=== PATIENT | male | born 1945 | race Caucasian/White ===

== ENCOUNTER 2016-12-23 20:10 | Emergency (ER) | payer OTHER ==
[~2016-12-23 20:10] MED LIST: AMIODARONE HCL INJ 150 MG/3 ML VIAL IV ONE; EPINEPHRINE INJ 1 MG/10 ML DISP.SYRIN ONE; SODIUM BICARBONATE 8.4% INJ 50 MEQ/50 ML DISP.SYRIN ONE; SUCCINYLCHOLINE CHLORIDE INJ 200 MG/10 ML VIAL ONE
[2016-12-23] MEDS ORDERED: PROPOFOL 100 ML IV ONE (20:17)
[2016-12-23] MEDS ORDERED: ASPIRIN 300 MG SUPP, RECTAL PR ONE (20:27)
--- NOTE | 2016-12-23 20:37 | ER Document Report ---
ED Resuscitation - General Stated Complaint: RESPITORY DISTRESS Time Seen by Provider: 12/23/16 20:26 Mode of Arrival: Medic Information source: Emergency Med Personnel Notes: This is a 71-year-old male presents with initial call of respiratory distress but cardiac arrest in route. EMS states that he was alert and conversant on their arrival in significant respiratory distress with room air sats in the 80s. They did start him on CPAP and in route he did experience a cardiac arrest. They gave one epi and performed CPR and patient did have a faint pulse upon arrival to the ER. He was intubated via RSI in the ER. However shortly after arrival he did lose his pulse and CPR was resumed. ACLS protocol was followed. Patient then was noted to be in V. tach and was defibrillated 3. He was given an amiodarone bolus followed by an amiodarone drip. He had return of spontaneous circulation with sinus rhythm. was then available for history. She states that he recently had an OK sometime last month and was treated at [facility]. She requests transfer back to [facility]. She does not think he had chest pain today but says that he did have shortness of breath today EMS reports that they were out there 2 times earlier today but patient had refused transport to the ER both times. TRAVEL OUTSIDE OF THE [place] IN LAST 30 DAYS: No Past Medical History - General Information source: Relative - Social History Smoking Status: Unknown if Ever Smoked Family History: Other - unknown at this time - Past Medical History Cardiac Medical History: Reports: Hx Heart Attack, Hx Hypertension Review of Systems - Review of Systems -: Yes ROS unobtainable due to patient's medical condition Physical Exam - Vital signs Vitals: Resp Pulse Ox 18 22 L 12/23/16 20:11 12/23/16 20:11 - General General appearance: Unresponsive - HEENT Head: Normocephalic Notes: pupils 2mm sluggish - Respiratory Respiratory status: Agonal respirations - Cardiovascular Rhythm: Regular - Abdominal Notes: distended, protuberant - Neurological Neuro grossly intact: No Tarah Coma Scale Eye Opening: None Warner Coma Scale Verbal: None Tarah Coma Scale Motor: None Tarah Coma Scale Total: 3 - Skin Skin Temperature: Warm Skin Color: Mottled, Cyanotic Course - Re-evaluation Re-evalutation: 12/23/16 20:45 I have paged the transfer center at [facility] and am awaiting to consult with the weight inspector/target setter for transfer. 12/23/16 21:04 I discussed the case with the weight inspector at [facility] Dr. Ridley. We will also get the target setter as second EKG is concerning for ST elevation inferiorly. Patient has been started on heparin and we will proceed with bicarb drip as recommended by weight inspector. ABG pending. Discussed with and answered her questions Discussed with target setter Dr. Whatley. Agrees with current plan and request copies of the EKG now. 12/23/16 21:33 Third EKG is done with now obvious ST elevation inferiorly concerning for STEMI. I have paged the target setter Dr. Whatley to discuss thrombolytics versus Central Supply Nurse. The flight crew is here to transport the patient 12/23/16 22:13 Prior to patient transfer, I did communicate the 3rd EKG/STEMI diagnosis to Dr. Whatley who recommended no thrombolytics at this time, secondary to high risk with likely little benefit at this time. - Vital Signs Vital signs: Temp Pulse Resp BP Pulse Ox 99.2 F 28 H 185/50 H 96 12/23/16 22:00 12/23/16 21:47 12/23/16 21:48 12/23/16 21:47 - Laboratory Result Diagrams: 12/23/16 20:20 12/23/16 21:00 Laboratory results interpreted by me: 12/23/16 12/23/16 12/23/16 20:20 21:00 21:00 WBC 25.0 H RBC 4.21 L Hgb 13.0 L MCV 99 H MCHC 31.2 L RDW 15.8 H Monocytes % (Manual) 14 H Metamyelocytes % 1 H Abs Neuts (Manual) 15.3 H Abs Lymphs (Manual) 6.0 H Abs Monocytes (Manual) 3.5 H Carbonic Acid ABG pH ABG pCO2 ABG pO2 Sodium 132.4 L Potassium 5.3 H Chloride 91 L BUN 27 H Glucose 483 H* Creatine Kinase 348 H CK-MB (CK-2) 8.47 H 12/23/16 21:00 WBC RBC Hgb MCV MCHC RDW Monocytes % (Manual) Metamyelocytes % Abs Neuts (Manual) Abs Lymphs (Manual) Abs Monocytes (Manual) Carbonic Acid 2.56 H ABG pH 7.06 L* ABG pCO2 85.1 H* ABG pO2 145.8 H Sodium Potassium Chloride BUN Glucose Creatine Kinase CK-MB (CK-2) Procedures - Intubation Orotracheal Airway evaluation: Large tongue Medications: Etomidate, Succinylcholine Intubation method: Orotracheal Blade type: Titus Blade size: 4 Equipment used: Glidescope ETT size: 7.5 Breath Sounds after Intubation: Equal End tidal CO2 confirmed: Yes Post Intubation Xray: Yes Intubation Complications: No complications Critical Care Note - Critical Care Note Total time excluding time spent on procedures (mins): 50 - Critical care time spent obtaining history from patient or surrogate, discussions with consultants , development of treatment plan with patient or surrogate, evaluation of patient 's response to treatment, examination of patient, ordering and performing treatments and interventions, ordering and review of laboratory studies, re- evaluation of patient's condition, ordering and review of radiographic studies and review of old charts Discharge - Discharge Clinical Impression: Cardiac arrest, Hyperglycemia STEMI (ST elevation myocardial infarction) Qualifiers: Involved coronary artery: unspecified coronary artery Qualified Code(s): I21.3 - ST elevation (STEMI) myocardial infarction of unspecified site Condition: Critical Disposition: [facility] Referrals: RYAN GEORGE MD [Primary Care Provider] - Follow up as needed
[2016-12-23 20:43] LABS: HEMATOCRIT 41.8 % (37.9-51.0); HGB HCT DIFFERENCE -2.8; MEAN CORPUSCULAR HGB CONC 31.2 g/dL (32.0-36.0); MEAN CORPUSCULAR VOLUME 99 fl (80-97); RED BLOOD COUNT 4.21 10^6/uL (4.35-5.55); RED CELL DISTRIBUTION WIDTH 15.8 % (11.5-14.0)
[2016-12-23 20:45] LABS: PROTHROMBIN TIME 12.9 SEC (11.4-15.4)
[2016-12-23] MEDS ORDERED: NORMAL SALINE 1000 ML 1,000 ML IV ONE (20:48)
[2016-12-23] MEDS ORDERED: HEPARIN SODIUM,PORCINE/D5W 250 ML IV PRN (20:48)
[2016-12-23] MEDS ORDERED: HEPARIN SOD (PORCINE) 1,000 UNIT/ML 10 ML VIAL IV ONE (20:48)
[2016-12-23 21:06] LABS: ANISOCYTOSIS SLIGHT; BAND NEUTROPHILS % (MANUAL) 4 % (3-5); BASOPHILS % (MANUAL) 0 % (0-2); EOSINOPHILS % (MANUAL) 1 % (0-6); LYMPHOCYTES % (MANUAL) 24 % (13-45); TOTAL CELLS COUNTED 100
[2016-12-23 21:10] LABS: BURR CELLS SLIGHT; POIKILOCYTOSIS SLIGHT; POLYCHROMASIA SLIGHT
[2016-12-23 21:11] LABS: PLATELET CLUMPS PRESENT
[2016-12-23] MEDS ORDERED: SODIUM BICARBONATE 8.4% INJ 50 MEQ/50 ML DISP.SYRIN ONE ×2 (21:12→21:26)
--- NOTE | 2016-12-23 21:12 | RADIOLOGY REPORT (SQ) ---
EXAM DESCRIPTION: CHEST SINGLE VIEW COMPLETED DATE/TIME: 12/23/2016 8:55 pm REASON FOR STUDY: post intubation COMPARISON: None. NUMBER OF VIEWS: One view. TECHNIQUE: Single frontal radiographic view of the chest acquired. LIMITATIONS: None. FINDINGS: LUNGS AND PLEURA: Slight interstitial prominence. No pneumothorax. No definitive consoli dating pneumonia. Mild vascular congestion. MEDIASTINUM AND HILAR STRUCTURES: No masses. Contour normal. HEART AND VASCULAR STRUCTURES: Cardiac enlargement. BONES: No acute findings. HARDWARE: Endotracheal tube looks grossly appropriate, above the jerome. There is a nasogastric tube down. The tip courses inferiorly and off the film, presumably within the stomach but difficult to f urther evaluate. Numerous overlying monitor lead artifacts limit assessment further. OTHER: No other significant finding. IMPRESSION: Intubated. Grossly appropriate endotracheal and nasogastric tubes allowing for a limita tions. Cardiomegaly with mild vascular congestion. TECHNICAL DOCUMENTATION: JOB ID: [id number] [employer] All Rights Reserved
[2016-12-23] MEDS ORDERED: NOREPINEPHRINE BITARTRATE INJ/PF 4 MG/4 ML SDV IV ONE (21:18)
[2016-12-23 21:19] LABS: ARTERIAL BLOOD BASE EXCESS -8.3 mmol/L; ARTERIAL BLOOD O2 SATURATION 97.7 % (94-98)
[2016-12-23] MEDS ORDERED: MIDAZOLAM 2 MG/2 ML INJ ONE (21:21)
[2016-12-23] MEDS ORDERED: INSULIN REG, HUMAN 100 UNIT/ML 3 ML VIAL (PYX) ONE (21:28)
[2016-12-23 21:32] LABS: ALANINE AMINOTRANSFERASE 42 U/L (21-72); ALKALINE PHOSPHATASE 81 U/L (38-126); ANION GAP 19 (5-19); ASPARTATE AMINO TRANSFERASE 46 U/L (17-59); BILIRUBIN,DIRECT 0.4 mg/dL (0.0-0.4); BILIRUBIN,TOTAL 0.6 mg/dL (0.2-1.3); BLOOD UREA NITROGEN 27 mg/dL (7-20); CALCIUM 8.6 mg/dL (8.4-10.2); CARBON DIOXIDE 22 mmol/L (22-30); CHLORIDE 91 mmol/L (98-107); CREATINE KINASE 348 U/L (55-170); CREATININE RESULT 1.19 mg/dL (0.52-1.25); POTASSIUM 5.3 mmol/L (3.6-5.0); SODIUM 132.4 mmol/L (137-145); TOTAL PROTEIN 6.5 g/dL (6.3-8.2)
[2016-12-23] MEDS ORDERED: DEXTROSE 40% GEL 15 GM TUBE PO PRN ×4 (21:35→21:36)
[2016-12-23] MEDS ORDERED: NORMAL SALINE 100 ML with INSULIN REGULAR, HUMAN 100 UNIT IV PRN ×2 (21:35)
[2016-12-23] MEDS ORDERED: DEXTROSE 50%-WATER 25 GM/50 ML DISP.SYRIN IV PRN ×4 (21:35→21:36)
[2016-12-23] MEDS ORDERED: GLUCAGON,HUMAN RECOMB 1 MG INJ IM PRN ×2 (21:35→21:36)
[2016-12-23 21:39] LABS: GLUCOSE 483 mg/dL (75-110)
[2016-12-23 21:44] LABS: CREATINE KINASE MB 8.47 ng/mL (<4.55)
[2016-12-23 21:47] LABS: TROPONIN I 0.091 ng/mL
[2016-12-23 22:30] VITALS: BP 185/50
--- NOTE | 2016-12-23 23:38 | EKG REPORT ---
SEVERITY:- ABNORMAL ECG - SINUS RHYTHM PROBABLE LEFT ATRIAL ABNORMALITY RIGHT BUNDLE BRANCH BLOCK INFERIOR INJURY, PROBABLE EARLY ACUTE INFARCT : Confirmed by: Alexey Trinidad 23-Dec-2016 23:37:49
--- NOTE | 2016-12-23 23:38 | EKG REPORT ---
SEVERITY:- ABNORMAL ECG - SINUS TACHYCARDIA NONSPECIFIC INTRAVENTRICULAR CONDUCTION DELAY : Confirmed by: Alexey Trinidad 23-Dec-2016 23:38:17
--- NOTE | 2016-12-23 23:38 | EKG REPORT ---
SEVERITY:- ABNORMAL ECG - ACCELERATED JUNCTIONAL ESCAPE RHYTHM RIGHT BUNDLE BRANCH BLOCK ST DEPRESSION, CONSIDER ISCHEMIA, LAT LEADS : Confirmed by: Alexey Trinidad 23-Dec-2016 23:38:10
== END 2016-12-23 23:58 | disposition short-term general hospital (02) ==
LOC: EDBD → ER 20:10
PROC: 0BH17EZ Insertion of Endotracheal Airway into Trachea, Via Natural or Artificial Opening (ICD-10-PCS; principal; 2016-12-23)
DX: I21.3 ST elevation (STEMI) myocardial infarction of unspecified site (principal); R73.9 Hyperglycemia, unspecified; I10 Essential (primary) hypertension; R06.00 Dyspnea, unspecified; I25.2 Old myocardial infarction
CPT/HCPCS: 31500; 93005; 99291; 92950; 51702; 96375; 96365; 96367; 36415; 82553; 82962; 82803; 82550; 85025; 85610; 80053; 84484; 71010; 93010; J2250; J1644 ×2; J3490 ×3; J0171; J0330; J0282; J1815